=== PATIENT | female | born 1990 | race Caucasian/White ===

== ENCOUNTER 2016-12-24 11:09 | Inpatient (IN) | payer OTHER ==
[~2016-12-24] VITALS: Ht 160 cm; Wt 59.0 kg
[2016-12-24 11:28] VITALS: BP 118/75
[2016-12-24] MEDS ORDERED: CEFTRIAXONE 1,000 MG IM SCH (12:30)
[2016-12-24] MEDS ORDERED: LACTATED RINGERS 1,000 ML IV SCH (12:30)
[2016-12-24] MEDS ORDERED: HYDROcodone/APAP 5/325 TABLET ONE ×3 (12:37→23:55)
[2016-12-24] MEDS: HYDROcodone/APAP 5/325 TABLET PO PRN ×3 (12:40→23:57)
[2016-12-24] MEDS: CEFTRIAXONE PMX 1GM/50ML 50 ML IV SCH (13:20)
[2016-12-24] MEDS: LACTATED RINGERS 1,000 ML IV SCH ×2 (19:10→23:57)
[2016-12-25 05:41] LABS: BLOOD UREA NITROGEN 3 mg/dL (7-18)
[2016-12-25 05:52] LABS: ASPARTATE AMINO TRANSFERASE 13 U/L (15-37)
[2016-12-25] MEDS ORDERED: LEVOTHYROXINE 100 MCG TABLET PO SCH (06:00)
[2016-12-25 06:03] LABS: PATH.CAST-FLAG NOT PRESENT; SPERM-FLAG NOT PRESENT; SRC-FLAG NOT PRESENT; XTAL-FLAG NOT PRESENT; YLC-FLAG NOT PRESENT
[2016-12-25] MEDS ORDERED: HYDROcodone/APAP 5/325 TABLET ONE ×3 (07:08→16:49)
[2016-12-25] MEDS: HYDROcodone/APAP 5/325 TABLET PO PRN ×3 (07:11→16:50)
[2016-12-25 07:15] VITALS: BP 107/67
[2016-12-25] MEDS: LACTATED RINGERS 1,000 ML IV SCH ×2 (07:36→16:27)
[2016-12-25] MEDS ORDERED: CEFTRIAXONE 1,000 MG IVPB SCH (12:30)
[2016-12-25] MEDS: CEFTRIAXONE PMX 1GM/50ML 50 ML IV SCH (14:23)
[2016-12-26] MEDS: LEVOTHYROXINE 50 MCG TABLET PO SCH (07:15)
[2016-12-26] MEDS ORDERED: HYDROcodone/APAP 5/325 TABLET ONE ×3 (07:17→21:19)
[2016-12-26] MEDS: HYDROcodone/APAP 5/325 TABLET PO PRN ×3 (07:17→21:22)
[2016-12-26] MEDS: LACTATED RINGERS 1,000 ML IV SCH ×3 (07:18→20:35)
[2016-12-26] MEDS: CEFTRIAXONE PMX 1GM/50ML 50 ML IV SCH (17:55)
[2016-12-26 21:54] VITALS: BP 112/68
[2016-12-27 08:00] VITALS: BP 106/63
[2016-12-27] MEDS ORDERED: HYDROcodone/APAP 5/325 TABLET ONE ×3 (08:15→20:44)
[2016-12-27] MEDS: HYDROcodone/APAP 5/325 TABLET PO PRN ×3 (08:24→20:54)
[2016-12-27] MEDS ORDERED: CEFTRIAXONE PMX 1GM/50ML 50 ML IV SCH (15:30)
[2016-12-28] MEDS: LEVOTHYROXINE 50 MCG TABLET PO SCH (07:00)
[2016-12-28] MEDS ORDERED: SODIUM CHLORIDE FLUSH 10ML SYR IVF SCH (09:00)
[2016-12-28] MEDS ORDERED: HYDROcodone/APAP 5/325 TABLET ONE (09:53)
[2016-12-28] MEDS: HYDROcodone/APAP 5/325 TABLET PO PRN (09:55)
[2016-12-28] MEDS ORDERED: CEFTRIAXONE PMX 1GM/50ML 50 ML IV SCH (12:00)
== END 2016-12-28 12:38 | disposition home or self-care (01) | DRG 781 ==
LOC: LDOP 11:09 → LDIP 12:05
PROVIDERS: ADMIT Obstetrics & Gynecology; ATTEND Obstetrics & Gynecology
PROC: 02HV33Z Insertion of Infusion Device into Superior Vena Cava, Percutaneous Approach (ICD-10-PCS; principal; 2016-12-27)
PROC: B5181ZA Fluoroscopy of Superior Vena Cava using Low Osmolar Contrast, Guidance (ICD-10-PCS; 2016-12-27)
DX: O23.02 Infections of kidney in pregnancy, second trimester (principal); R78.81 Bacteremia; O26.892 Other specified pregnancy related conditions, second trimester; B96.20 Unspecified Escherichia coli [E. coli] as the cause of diseases classified elsewhere; O99.282 Endocrine, nutritional and metabolic diseases complicating pregnancy, second trimester; E03.9 Hypothyroidism, unspecified; Z3A.24 24 weeks gestation of pregnancy; Z83.3 Family history of diabetes mellitus; Z87.440 Personal history of urinary (tract) infections; Z87.891 Personal history of nicotine dependence; Z90.89 Acquired absence of other organs; Z81.1 Family history of alcohol abuse and dependence; Z83.49 Family history of other endocrine, nutritional and metabolic diseases
CPT/HCPCS: 36415; 36569; 76770; 76937; 77001; 80053; 81001; 83605; 84443; 85025; 87040; 87077; 87086; 87186; J0696; C1751; J7120

== ENCOUNTER 2017-03-13 13:42 | Observation (INO) | payer OTHER ==
[~2017-03-13] VITALS: Ht 160 cm; Wt 64.0 kg
[2017-03-13] MEDS ORDERED: TERBUTALINE 1 MG/ML, 1ML SQ ONE (14:30)
[2017-03-13] MEDS ORDERED: TERBUTALINE 1 MG/ML, 1ML ONE (14:48)
[2017-03-13 14:56] VITALS: BP 118/67
[2017-03-13] MEDS ORDERED: PLEASE ENTER ALLERGIES MC SCH ×2 (15:00)
[2017-03-13] MEDS ORDERED: PLEASE ENTER HEIGHT AND WEIGHT MC SCH (15:00)
[2017-03-13] MEDS ORDERED: PREN1TAB60 PO (16:35)
[2017-03-13] MEDS ORDERED: LEVO50TA PO (16:38)
== END 2017-03-13 16:50 | disposition home or self-care (01) ==
LOC: LDOP 13:42 → LDIP 15:13
PROVIDERS: ADMIT Obstetrics & Gynecology; ATTEND Obstetrics & Gynecology
DX: O26.899 Other specified pregnancy related conditions, unspecified trimester (principal); R10.9 Unspecified abdominal pain; Z3A.00 Weeks of gestation of pregnancy not specified
CPT/HCPCS: 59025; 96372; 99211; G0378; J3105; G0463

== ENCOUNTER 2017-04-20 16:37 | Inpatient (IN) | payer OTHER ==
[~2017-04-20] VITALS: Ht 160 cm; Wt 66.0 kg
[~2017-04-20 16:37] MED LIST: LEVO50TA PO; PREN1TAB60 PO
[2017-04-25] MEDS ORDERED: OXYTOCIN 30U/ 0.9% NaCL 500ML 500 ML IV PRN (21:08)
[2017-04-25] MEDS ORDERED: OXYTOCIN 30U/ 0.9% NaCL 500ML 500 ML IV ONE (21:08)
[2017-04-25 21:25] VITALS: BP 136/85
[2017-04-25 21:30] LABS: HEMATOCRIT 36.6 % (34.6-47.8); HEMOGLOBIN 12.4 g/dL (11.7-16.4); WHITE BLOOD COUNT 9.6 x10^3/uL (3.4-10)
[2017-04-25] MEDS ORDERED: TERBUTALINE 1 MG/ML, 1ML IVPush PRN (21:30)
[2017-04-25] MEDS ORDERED: ONDANSETRON 2MG/ML, 2ML IVPush PRN (21:30)
[2017-04-25] MEDS ORDERED: PLEASE ENTER HEIGHT AND WEIGHT MC SCH (21:30)
[2017-04-25] MEDS ORDERED: SODIUM CITRATE/CITRIC ACID 30 ML UDC PO PRN (21:30)
[2017-04-25] MEDS ORDERED: FENTANYL PF 100 MCG/2ML IV PRN (21:30)
[2017-04-25] MEDS ORDERED: MISOPROSTOL 25 MCG TABLET ONE (21:52)
[2017-04-25] MEDS: MISOPROSTOL 25 MCG TABLET VG PRN (21:58)
[2017-04-25] MEDS: LACTATED RINGERS 1,000 ML IV SCH (22:01)
[2017-04-26] MEDS: MISOPROSTOL 25 MCG TABLET VG PRN (03:45)
[2017-04-26] MEDS ORDERED: MISOPROSTOL 25 MCG TABLET ONE (03:46)
[2017-04-26] MEDS: D5%-LACTATED RINGERS 1,000 ML IV SCH ×4 (05:08→21:08)
[2017-04-26] MEDS ORDERED: FENTANYL PF 100 MCG/2ML ONE ×2 (06:58→08:29)
[2017-04-26] MEDS: FENTANYL PF 100 MCG/2ML IVPush PRN ×2 (07:00→08:58)
[2017-04-26] MEDS: LACTATED RINGERS 1,000 ML IV SCH ×5 (07:01→21:08)
[2017-04-26 07:15] VITALS: BP 126/88
[2017-04-26] MEDS ORDERED: OXYTOCIN 30U/ 0.9% NaCL 500ML 500 ML ONE ×2 (08:21→18:41)
[2017-04-26] MEDS: LEVOTHYROXINE 50 MCG TABLET HOMEMEDPO SCH (08:27)
[2017-04-26] MEDS ORDERED: TERBUTALINE 1 MG/ML, 1ML ONE (08:35)
[2017-04-26] MEDS ORDERED: MISOPROSTOL 200 MCG TABLET ONE (09:47)
[2017-04-26] MEDS ORDERED: LIDOCAINE 1%, 20ML ONE (09:47)
[2017-04-26] MEDS ORDERED: FENTANYL/BUPIV./NS/PF 250 ML EPIDCONT SCH (10:23)
[2017-04-26] MEDS ORDERED: FENTANYL/BUPIV./NS/PF 250 ML EPIDCONT ONE ×2 (10:27→10:42)
[2017-04-26] MEDS ORDERED: BUPIVACAINE/PF 0.25% ONE (10:27)
[2017-04-26] MEDS ORDERED: LACTATED RINGERS 1,000 ML IVBOLUS PRN (10:30)
[2017-04-26] MEDS ORDERED: NALOXONE 0.4 MG/ML, 1ML IVPush PRN (10:30)
[2017-04-26] MEDS ORDERED: EPHEDRINE 50 MG/ML, 1ML IVPush PRN (10:30)
[2017-04-26] MEDS ORDERED: BUPIVACAINE 0.25% ONE (10:42)
[2017-04-26] MEDS: OXYTOCIN 30U/ 0.9% NaCL 500ML 500 ML IV SCH ×5 (18:53→23:11)
[2017-04-26] MEDS ORDERED: CALCIUM CARBONATE 500 MG TAB.CHEW PO PRN (19:00)
[2017-04-26] MEDS ORDERED: HYDROcodone/APAP 5/325 TABLET PO PRN (19:00)
[2017-04-26] MEDS ORDERED: MISOPROSTOL 200 MCG TABLET PR PRN (19:00)
[2017-04-26] MEDS ORDERED: RHOGAM FROM BLOOD BANK 1 NOTE EA IM/IV ONE (19:00)
[2017-04-26] MEDS ORDERED: DOCUSATE 100 MG CAPSULE PO PRN (19:00)
[2017-04-26] MEDS ORDERED: ONDANSETRON 2MG/ML, 2ML IV PRN (19:00)
[2017-04-26] MEDS ORDERED: BISACODYL 10 MG SUPP PR PRN (19:00)
[2017-04-26] MEDS ORDERED: ACETAMINOPHEN 325 MG TABLET PO PRN ×2 (19:00)
[2017-04-26] MEDS ORDERED: IBUPROFEN 600 MG TABLET ONE (19:09)
[2017-04-26] MEDS: IBUPROFEN 600 MG TABLET PO PRN (19:12)
[2017-04-26] MEDS ORDERED: OXYcodone/APAP 5/325MG TABLET ONE (19:35)
[2017-04-26] MEDS ORDERED: HYDROcodone/APAP 5/325 TABLET ONE (19:37)
[2017-04-26] MEDS: HYDROcodone/APAP 5/325 TABLET PO PRN (19:40)
[2017-04-26 21:15] VITALS: BP 116/76
[2017-04-27 00:30] VITALS: BP 115/73
[2017-04-27] MEDS: OXYTOCIN 30U/ 0.9% NaCL 500ML 500 ML IV SCH ×4 (00:37→14:53)
[2017-04-27 03:07] LABS: HEMATOCRIT 31.1 % (34.6-47.8); HEMOGLOBIN 10.6 g/dL (11.7-16.4); WHITE BLOOD COUNT 11.2 x10^3/uL (3.4-10)
[2017-04-27 04:18] VITALS: BP 117/77
[2017-04-27] MEDS: HYDROcodone/APAP 5/325 TABLET PO PRN ×3 (07:05→19:00)
[2017-04-27] MEDS: IBUPROFEN 600 MG TABLET PO PRN ×2 (07:05→14:08)
[2017-04-27] MEDS: LEVOTHYROXINE 50 MCG TABLET HOMEMEDPO SCH (07:06)
[2017-04-27 07:10] VITALS: BP 119/84
[2017-04-27] MEDS ORDERED: PRENATAL VIT/IRON/FA 1 EACH TABLET PO SCH (09:00)
[2017-04-27 14:09] VITALS: BP 130/92
[2017-04-27 16:49] VITALS: BP 124/83
[2017-04-27] MEDS ORDERED: HYDR1TAB12 PO (17:45)
[2017-04-27] MEDS ORDERED: IBUP-1222 PO (17:46)
[2017-04-27] MEDS ORDERED: DOCU-131 PO (17:46)
== END 2017-04-27 19:27 | disposition home or self-care (01) | DRG 775 ==
LOC: LDIP 04-25 21:09 → 2NW 04-26 20:49
PROVIDERS: ADMIT Obstetrics & Gynecology; ATTEND Obstetrics & Gynecology
PROC: 10E0XZZ Delivery of Products of Conception, External Approach (ICD-10-PCS; principal; 2017-04-26)
PROC: 0KQM0ZZ Repair Perineum Muscle, Open Approach (ICD-10-PCS; 2017-04-26)
PROC: 3E0R3BZ Introduction of Anesthetic Agent into Spinal Canal, Percutaneous Approach (ICD-10-PCS; 2017-04-26)
PROC: 00HU33Z Insertion of Infusion Device into Spinal Canal, Percutaneous Approach (ICD-10-PCS; 2017-04-26)
PROC: 0UQMXZZ Repair Vulva, External Approach (ICD-10-PCS; 2017-04-26)
PROC: 30233S1 Transfusion of Nonautologous Globulin into Peripheral Vein, Percutaneous Approach (ICD-10-PCS; 2017-04-26)
PROC: 3E0P7VZ Introduction of Hormone into Female Reproductive, Via Natural or Artificial Opening (ICD-10-PCS; 2017-04-26)
PROC: 10907ZC Drainage of Amniotic Fluid, Therapeutic from Products of Conception, Via Natural or Artificial Opening (ICD-10-PCS; 2017-04-26)
DX: O48.0 Post-term pregnancy (principal); O99.344 Other mental disorders complicating childbirth; E03.9 Hypothyroidism, unspecified; Z37.0 Single live birth; F41.9 Anxiety disorder, unspecified; O36.8190 Decreased fetal movements, unspecified trimester, not applicable or unspecified; Z3A.40 40 weeks gestation of pregnancy; O76 Abnormality in fetal heart rate and rhythm complicating labor and delivery; O99.284 Endocrine, nutritional and metabolic diseases complicating childbirth; Z83.3 Family history of diabetes mellitus; O70.1 Second degree perineal laceration during delivery; O71.82 Other specified trauma to perineum and vulva
CPT/HCPCS: 36415; 85025; 85461; 86850; 86900; J2790; J3010; J3490; J2590; J3105; J7120; J7121

== ENCOUNTER 2018-10-04 13:51 | Emergency (ER) | payer OTHER ==
[~2018-10-04] VITALS: Ht 160 cm; Wt 57.0 kg
[~2018-10-04 13:51] MED LIST changes: +CALC200T24 PO; +DOCU-131 PO; +HYDR-3240 PO; +HYDR1TAB13 PO; +IBUP-1222 PO; +LEVO125T PO
[2018-10-04 14:27] LABS: BASOPHILS # (AUTO) 0.03 x10^3/uL (0-0.1); BASOPHILS % (AUTO) 0 % (0-1); EOSINOPHILS # (AUTO) 0.08 x10^3/uL (0-0.4); EOSINOPHILS % (AUTO) 1 % (1-7); LYMPHOCYTES # (AUTO) 1.96 x10^3/uL (1-3.4); LYMPHOCYTES % (AUTO) 23 % (22-44); MD NO; MEAN CORPUSCULAR HEMOGLOBIN 31.3 pg (27.0-34.8); MEAN CORPUSCULAR HGB CONC 34.3 g/dL (32.4-35.8); MEAN PLATELET VOLUME 6.7 fL (7.4-10.4); MONOCYTES % (AUTO) 7 % (2-9); NEUTROPHILS % (AUTO) 68 % (42-75); PLATELET COUNT 316 x10^3/uL (130-400); RED BLOOD COUNT 4.58 x10^6/uL (3.82-5.3); RED CELL DISTRIBUTION WIDTH 13.3 % (9.6-15.2)
[2018-10-04 14:38] LABS: ALBUMIN 3.7 g/dL (3.4-5.0); ANION GAP 10 mmol/L (5-15); CALCIUM 8.2 mg/dL (8.5-10.1); CHLORIDE 114 mmol/L (98-107); CREATININE 0.68 mg/dL (0.55-1.02)
[2018-10-04 14:42] LABS: FREE T4 (FREE THYROXINE) 0.92 ng/dL (0.76-1.46)
[2018-10-04 15:05] VITALS: BP 117/77
== END 2018-10-04 16:13 | disposition home or self-care (01) ==
LOC: ED 14:23
DX: R55 Syncope and collapse (principal); F41.1 Generalized anxiety disorder; R06.4 Hyperventilation; F17.200 Nicotine dependence, unspecified, uncomplicated; E03.9 Hypothyroidism, unspecified; Z90.89 Acquired absence of other organs
CPT/HCPCS: 36415; 71045; 80048; 82040; 84439; 84443; 84481; 84703; 85025; 93005; 99284